=== PATIENT | female | born 1945 | race Caucasian/White ===

== ENCOUNTER 2021-04-30 18:52 | Emergency (ER) | payer MEDICARE, BC ==
[~2021-04-30] VITALS: Ht 157.5 cm; Wt 110.7 kg
[2021-04-30] MEDS ORDERED: CYCLOBENZAPRINE5 MG PO (19:30)
[2021-04-30] MEDS ORDERED: LIPITOR 20 MG T20 M1 PO (19:30)
[2021-04-30] MEDS ORDERED: LAMOTRIGINE ODT25 MG PO (19:31)
[2021-04-30] MEDS ORDERED: ZESTRIL40 MG PO (19:31)
[2021-04-30] MEDS ORDERED: FUROSEMIDE 40 M40 M1 PO (19:31)
[2021-04-30] MEDS ORDERED: PROTONIX40 M2 PO (19:32)
[2021-04-30] MEDS ORDERED: EFFER-K 10 MEQ10 ME1 PO (19:32)
[2021-04-30] MEDS ORDERED: HYDROCHLOROTH12.5 M1 PO (19:33)
[2021-04-30 19:53] LABS: ABSOLUTE BASOPHILS 0.1 thou/uL (0.0-0.2); ABSOLUTE EOSINOPHILS 0.1 thou/uL (0.0-0.7); ABSOLUTE LYMPHOCYTES 2.1 thou/uL (0.8-5.3); ABSOLUTE MONOCYTES 0.5 thou/uL (0.0-1.2); ABSOLUTE NEUTROPHILS 4.7 thou/uL (1.6-8.1); BASOPHILS 0.8 %; EOSINOPHILS 1.4 %; HEMATOCRIT 38.3 % (37.0-47.0); HEMOGLOBIN 12.7 gm/dL (12.0-15.0); LYMPHOCYTES 28.4 %; MCH 30.8 pg (26.0-34.0); MCHC 33.1 g/dL (28.0-37.0); MCV 93.1 fL (80.0-100.0); MONOCYTES 6.7 %; MPV 9.9 fl. (7.2-11.1); NUCLEATED RBCS 0 /100WBC; PLATELET COUNT* 240 thou/uL (150-400); POLYS 62.7 %; RBC 4.11 mil/uL (4.20-5.00); RDW-CV 13.8 % (10.5-14.5); WBC 7.5 thou/uL (4.0-11.0)
[2021-04-30 20:03] LABS: CREATININE 1.4 mg/dL (0.6-1.3); POTASSIUM 3.7 mmol/L (3.5-5.1)
[2021-04-30 20:08] LABS: ALCOHOL < 10 mg/dL (<10); MAGNESIUM 1.3 mg/dL (1.8-2.4); SALICYLATE 3.1 mg/dL (2.8-20.0); TOTAL BILIRUBIN 0.7 mg/dL (<0.1-1.0); TOTAL PROTEIN 7.1 g/dL (6.4-8.2)
[2021-04-30 20:12] LABS: ACETAMINOPHEN < 2 ug/mL (10-30)
[2021-04-30 20:19] LABS: URINE BILIRUBIN NEGATIVE (Negative); URINE BLOOD NEGATIVE (Negative); URINE CLARITY CLEAR; URINE COLOR YELLOW; URINE GLUCOSE-RANDOM NEGATIVE (Negative); URINE KETONES NEGATIVE (Negative); URINE LEUKOCYTES-REFLEX NEGATIVE (Negative); URINE NITRITE-REFLEX NEGATIVE (Negative); URINE PROTEIN NEGATIVE (Negative); URINE UROBILINOGEN 0.2 E.U./dl (0.2-1.0)
[2021-04-30 20:28] LABS: AMP/METHAMP Negative (Negative); BARBITURATES Negative (Negative); BENZODIAZEPINES Negative (Negative); COCAINE Negative (Negative); METHADONE Negative (Negative); OPIATES Negative (Negative); PCP Negative (Negative); THC Negative (Negative)
[2021-05-01 01:50] VITALS: BP 143/79
--- NOTE | 2021-05-01 09:43 | EKG ---
[place] [address] ELECTROCARDIOGRAM REPORT Name: TALISHA MITTAL Marco A Room: [facility]#: [id number] Admission: 04/30/21 Attend Phys: Discharge: 05/01/21 Date of : 49 Date of Service: 04/30/211947 Report #: [id number] THIS REPORT FOR: //name// [facility] ED Test Date: 2021-04-30 Test Time: 19:48:11 Pat Name: TALISHA MITTAL Department: Room: Gender: F Web Applications Developer: NADJA : 1945 Requested By: Fadia Borja Order Number: [id number] MD: Ramírez Myrick Measurements Intervals [place] Rate: 96 P: -1 IA: 156 QRS: -53 QRSD: 103 T: 44 QT: 367 QTc: 464 Interpretive Statements Sinus rhythm RSR' in V1 or V2, right VCD or RVH Inferior infarct, old Baseline wander in lead(s) II,III,aVR,aVL,aVF,V2,V3,V4,V5 No previous ECG available for comparison Electronically Signed On 05-01-2021 9:42:42 CDT by Ramírez Myrick [email or web address] <ELECTRONICALLY SIGNED> By: Ramírez Myrick MD, [facility] 05/01/2142 47 47 Ramírez Myrick MD, [facility] /EPI
== END 2021-05-01 01:50 | disposition short-term general hospital (02) ==
LOC: M.ERS 18:52
PROVIDERS: Emergency Medicine
DX: F31.9 Bipolar disorder, unspecified (principal); Z20.822 Contact with and (suspected) exposure to COVID-19; R45.851 Suicidal ideations; E78.00 Pure hypercholesterolemia, unspecified; F32.9 Major depressive disorder, single episode, unspecified; F41.9 Anxiety disorder, unspecified; I10 Essential (primary) hypertension; K21.9 Gastro-esophageal reflux disease without esophagitis; F17.210 Nicotine dependence, cigarettes, uncomplicated; Z79.899 Other long term (current) drug therapy; Z88.5 Allergy status to narcotic agent